=== PATIENT | female | born 1960 | race African-American/Black ===

== ENCOUNTER 2017-06-26 18:46 | Emergency (ER) | payer OTHER ==
[~2017-06-26] VITALS: Ht 167.6 cm; Wt 69.9 kg
[~2017-06-26 18:46] MED LIST: ASPIRIN CHEWABL81 M1; GLUCOPHAGE500 MG; LOPRESSOR25 MG; XANAX XR0.5 MG
[2017-06-26 20:22] LABS: ADD MIUA? YES; BILIRUBIN SMALL; BLOOD NEGATIVE; COLOR AMBER ((YELLOW)); GLUCOSE (STRIP) 50; KETONES 5; LEUKOCYTES SMALL; NITRITE NEGATIVE; PROTEIN (STRIP) >=500; SPECIFIC GRAVITY 1.023 (1.000-1.030)
[2017-06-26 20:54] LABS: CHLORIDE 105 mEq/L (99-109); POTASSIUM 3.3 mEq/L (3.7-5.4); SODIUM 142 mEq/L (136-147)
[2017-06-26 20:56] LABS: GLUCOSE 97 mg/dL (70-99)
[2017-06-26 20:57] LABS: ANION GAP 10 MEQ/L (2-14)
[2017-06-26 20:57] LABS: BACTERIA 2+ /HPF; EPITHELIAL CELLS 3+ /HPF; MUCUS 1+ /LPF; RED BLOOD CELLS 0-5 /HPF (0-5); UCUL ADDED? YES
[2017-06-26 21:00] LABS: GFR ESTIMATE (CALCULATED) 46 mL/min/
[2017-06-26 21:01] LABS: UREA NITROGEN (BUN) 16 mg/dL (9-23)
[2017-06-26 21:03] LABS: HEMATOCRIT 36.2 % (36.0-46.0); MCH 22.4 PG (29.0-34.0); MCV 69.7 FL (83-99); MEAN PLAT.VOLUME 10.4 uM^3 (9.5-12.4); PLATELET COUNT 315 K/uL (156-360); RBC DIS.WIDTH-CV 16.8 % (11.8-14.6); RBC DIS.WIDTH-SD 41.5 % (39-53); RED BLOOD COUNT 5.19 M/uL (3.80-5.20); WHITE BLOOD COUNT 11.4 K/uL (4.1-10.2)
[2017-06-26] MEDS ORDERED: ULTRAM50 MG PO (23:00)
[2017-06-26] MEDS ORDERED: NAPROXEN500 MG PO (23:00)
[2017-06-26] MEDS ORDERED: PERCOCET 5/31 TABLET PO (23:04)
[2017-06-26] MEDS ORDERED: NORVASC10 MG PO (23:17)
[2017-06-26 23:26] VITALS: BP 148/73
== END 2017-06-26 23:29 | disposition home or self-care (01) ==
LOC: EXP 18:46 → EME 18:46 → EXP 23:29
DX: M54.5 Low back pain (principal); M41.9 Scoliosis, unspecified; I10 Essential (primary) hypertension; E11.9 Type 2 diabetes mellitus without complications; Z79.84 Long term (current) use of oral hypoglycemic drugs; Z79.82 Long term (current) use of aspirin; F17.200 Nicotine dependence, unspecified, uncomplicated
CPT/HCPCS: 74176; 80048; 81003; 85027; 87086; 99281; 99284; J1100